=== PATIENT | female | born 1935 | race Caucasian/White ===

== ENCOUNTER 2019-06-22 13:59 | Emergency (ER) | payer MEDICARE | END 2019-06-22 14:59 | disposition home or self-care (01) | LOC: EDH 13:59 | DX: S20.462A Insect bite (nonvenomous) of left back wall of thorax, initial encounter (principal); S20.461A Insect bite (nonvenomous) of right back wall of thorax, initial encounter; E78.00 Pure hypercholesterolemia, unspecified; W57.XXXA Bitten or stung by nonvenomous insect and other nonvenomous arthropods, initial encounter; Y93.89 Activity, other specified; Y92.098 Other place in other non-institutional residence as the place of occurrence of the external cause; Y99.8 Other external cause status ==

== ENCOUNTER 2019-07-23 12:08 | Emergency (ER) | payer MEDICARE ==
[2019-07-23 12:51] LABS: BASOPHILS % (AUTO) 0.6 % (0.0-5.0); EOSINOPHILS % (AUTO) 2.1 % (0.0-8.0); LYMPHOCYTES % (AUTO) 13.4 % (21.0-51.0); MEAN CORPUSCULAR HEMOGLOBIN 30.4 pg (27.0-33.0); MEAN CORPUSCULAR HGB CONC 32.5 g/dL (32.0-36.0); MEAN CORPUSCULAR VOLUME 93.5 fL (79-99); MONOCYTES % (AUTO) 5.4 % (3.0-13.0); NEUTROPHILS % (AUTO) 78.2 % (40.0-77.0); PLATELET COUNT (AUTO) 335 K/uL (130-400); RED BLOOD CELL COUNT(AUTO) 4.28 MIL/uL (4.00-5.50); RED CELL DISTRIBUTION WIDTH 13.7 % (11.0-15.5); WHITE BLOOD COUNT (AUTO) 12.6 K/uL (4.8-10.8)
[2019-07-23 12:52] LABS: POTASSIUM 3.5 mmol/L (3.5-5.1)
== END 2019-07-23 14:09 | disposition home or self-care (01) ==
LOC: EDH 12:08
DX: S40.011A Contusion of right shoulder, initial encounter (principal); R07.89 Other chest pain; E78.00 Pure hypercholesterolemia, unspecified; Z87.891 Personal history of nicotine dependence; W01.0XXA Fall on same level from slipping, tripping and stumbling without subsequent striking against object, initial encounter; Y93.89 Activity, other specified; Y92.89 Other specified places as the place of occurrence of the external cause; Y99.8 Other external cause status
CPT/HCPCS: 36415; 71046; 73030; 80048; 84484; 85025; 93005

== ENCOUNTER 2019-10-22 14:18 | Emergency (ER) | payer MEDICARE, OTHER | END 2019-10-22 15:33 | disposition home or self-care (01) | LOC: EDH 14:18 | DX: R05 Cough (principal); E80.0 Hereditary erythropoietic porphyria | CPT/HCPCS: 71046 ==